=== PATIENT | female | born 1980 | race Caucasian/White ===

== ENCOUNTER 2016-09-14 11:02 | Emergency (ER) | payer OTHER ==
[~2016-09-14] VITALS: Ht 160 cm; Wt 52.3 kg
[2016-09-14 11:04] VITALS: BP 123/86; PULSE 88; RESP 20; O2SAT 100
--- NOTE | 2016-09-14 11:22 | ED.REPORT ---
HPI-Abd Pain F Under 39 Date of Service Sep 14, 2016 ED Provider: Gerson Padilla MD The patient is a 35 year old female who presents to the ED due to RLQ abdominal pain onset 2.5 hrs ago. She is pale, tearful and rates the pain as very severe, non-radiating and, "extremely uncomfortable." She c/o associated nausea and chills and denies chest pain, cough and SOB. She has a history of ovarian cysts but this pain is different. Pt is not . Nursing Notes Stated Complaint: ABDOMINAL PAIN Chief Complaint: Female Abdominal Pain Nursing Notes Reviewed: Yes Allergies: Coded Allergies: sulfamethoxazole (Verified Allergy, Mild, rash, 09/14/16) trimethoprim (Verified Allergy, Mild, rash, 09/14/16) General Time Seen by MD: 11:22 Chief Complaint Abdominal pain Hx Obtained From: Patient Arrived By: Walk-in Sudden in Onset?: Yes Onset Occurred: 1 - 4 hours ago Symptom Duration: Since onset Location: : RLQ Radiation: : Does not radiate Severity: Current: Severe Recent Healthcare: No recent doctor visit, No recent hospitalization Similar Sx Previous: No Past Medical History Past Medical History ovarian cysts Past Surgical History denies Smoking History Unknown if Ever Smoker Social History Other Social History: Local resident Ambulatory Status Independent Review of Systems Constitutional: Reports: Chills Respiratory: Denies: Non-productive cough, Shortness of breath Cardiovascular: Denies: Chest pain GI: Reports: Abdominal pain (RLQ), Nausea Complete sys rev & neg: except as marked. Physical Exam Initial Vital Signs Vital Signs (First) Date Time Temp Pulse Resp B/P Pulse Ox O2 Delivery O2 Flow Rate FiO2 09/14/16 11:04 36.4 88 20 123/86 100 Room Air Initial VS: Reviewed Head / Eyes: Atraumatic, Normocephalic, PERRL ENT: Mucous membranes moist, Conjunctiva normal, No scleral icterus Neck: Supple, Non-tender, Full range of motion Lymphatic: No lymphadenopathy Extremities: Vascular intact, Neuro intact, No swelling, No tenderness Skin: Warm, Dry, No cyanosis General/Constitutional: Awake Distress / Hydration: Positive: Distress mild Behavior: Positive: Tearful Appearance / Presentation: Positive: Pale laying with knees bent on gurney Able to move about in bed without too much trouble Respiratory / Chest: Atraumatic, Breath sounds NL, Breath sounds = bilat, No respiratory distress, No rales, No rhonchi, No wheezing Cardiovascular: Heart rate NL, Regular rhythm, Heart sounds NL, No gallop, No murmurs, No rubs Abdomen: Atraumatic, Soft, Non-tender, No guarding, No rebound, BS normoactive able to push on abdomen with no reproducable pain Back: Atraumatic, Inspection NL, Full range of motion, Painless range of motion , Non-tender Interpretation & Diagnostics Lab Results Interpretation Result Diagram: 09/14/16 1118 09/14/16 1118 Test 09/14/16 11:18 White Blood Count 6.9th/mm3 (3.8-10.1) Red Blood Count 4.68mil/mm3 (3.90-5.20) Hemoglobin 13.5g/dL (12.0-15.6) Hematocrit 40.8% (35.0-46.0) Mean Corpuscular Volume 87.2fL (81-100) Mean Corpuscular Hemoglobin 28.8pg (27.0-35.0) Mean Corpuscular Hemoglobin Concent 33.1% (32.0-37.0) Red Cell Distribution Width 12.5% (12.3-15.4) Platelet Count 221bil/L (150-400) Neutrophils (%) (Auto) 78.7% (40-74) Lymphocytes (%) (Auto) 14.6% (14-46) Monocytes (%) (Auto) 6.0% (4-12) Eosinophils (%) (Auto) 0.3% (0-5) Basophils (%) (Auto) 0.1% (0-3) Sodium Level 142mEq/L (134-144) Potassium Level 4.2mEq/L (3.5-5.2) Chloride Level 100mEq/L (97-108) Carbon Dioxide Level 25mmol/L (18-29) Blood Urea Nitrogen 11mg/dL (6-20) Creatinine 0.73mg/dL (0.57-1.00) Estimat Glomerular Filtration Rate 129mL/min (>59) Glucose Level 120mg/dL (60-99) Calcium Level 9.3mg/dL (8.5-10.1) Magnesium Level 1.9mg/dL (1.6-2.6) Total Bilirubin 0.8mg/dL (0.0-1.2) Aspartate Amino Transf (AST/SGOT) 16U/L (0-50) Alanine Aminotransferase (ALT/SGPT) 11U/L (0-32) Alkaline Phosphatase 55U/L (25-150) Total Protein 7.4g/dL (6.4-8.4) Albumin 4.5g/dL (3.4-5.0) Lipase 18U/L (13-60) US Renal/Urinary Tract 6 mm kidney stone in the bladder Exam Performed by: Radiologist Re-Eval/Medical Decision Re-Evaluation/Progress : Time of Eval: 13:22 Patient Status: Condition improved, Pain improved Re-Evaluation/Progress Note: Pt rechecked. Informed pt of diagnosis of 6mm kidney stone and plan for treatment. Pt understands and agrees with plan. F/U and RTER warnings given. All questions addressed. Counseled Regarding: Diagnosis, Lab results, Need for follow-up, When/why to return to ED Discharge & Departure Primary Impression: Ureterolithiasis Disposition: Home Discharge Condition All VS Reviewed: Yes Condition: Stable Patient Instructions: Renal Colic (ED) Additional Instructions: You have a 6mm kidney stone in your bladder. This is almost certainly the cause for the pain you were experiencing earlier. You will eventually pee out the stone and should not experience any further extreme pain. Do not drive your car or operate any machinery for a few hours until the pain medication wears off. Follow up with your primary care physician as needed. Return to the Emergency Department if you experience any new or worsening symptoms. We hope you feel better soon! You may require ibuprofen 800 mg every 8 hours. Referrals: OTHER,PHYSICIAN (PCP) Scribe Attestation Portion of this note were transcribed by Tamiko Church. I, Dr. Padilla, personally performed the history, physical exam, and medical decision-making: I reviewed and confirmed the accuracy for the information in the transcribed note. Signed by: ray Carreon, 09/14/16 0120 Gerson Padilla MD Sep 14, 2016 11:22 TAMIKO CHURCH Sep 14, 2016 11:36
[2016-09-14] MEDS ORDERED: Ondansetron 2 mg/mL 2 mL Inj IVPUSH PRN (11:25)
[2016-09-14] MEDS ORDERED: 0.9% Sodium Chloride 1,000 ML IV ONE (11:25)
[2016-09-14] MEDS ORDERED: Pantoprazole 4 mg/mL 10 mL Inj IVPUSH ONE (11:25)
[2016-09-14 11:30] LABS: BASOPHILS % (AUTO) 0.1 % (0-3); EOSINOPHILS % (AUTO) 0.3 % (0-5); Mean Corpuscular Hemoglobin 28.8 pg (27.0-35.0); Mean Corpuscular Volume 87.2 fL (81-100); NEUTROPHILS % (AUTO) 78.7 % (40-74); Platelet Count 221 bil/L (150-400)
[2016-09-14] MEDS: HYDROmorphone 1 mg/mL Inj IVPUSH PRN ×2 (11:45→12:31)
[2016-09-14 12:01] LABS: Magnesium 1.9 mg/dL (1.6-2.6)
[2016-09-14 13:46] VITALS: BP 128/80; PULSE 74; RESP 16; O2SAT 100
--- NOTE | 2016-09-14 13:54 | DRSVH ---
PROCEDURE: US RENAL SONOGRAM INDICATIONS: hydro? TECHNIQUE: Real-time scanning was performed of the kidneys and bladder, with image documentation. COMPARISON: CT, ABD/PELVIS W&WO CON ([facility]), 11/18/2010, 9:22. FINDINGS: Kidneys: Kidneys are normal in size. Right kidney measures 10.7 cm long; left kidney measures 11.4 cm long. Right renal cortical thickness is 1.2 cm; left renal cortical thickness is 1.4 cm. Renal c ortical echotexture is normal. No hydronephrosis. 8 mm nonobstructing right renal calcification.. No suspicious solid mass lesions. Bladder: Pre-void bladder volume is 84 mL. Post-void residual is 0 mL. Pre-void images demonstrate no intraluminal masses or stones. On pre-void images, neither ureteral jets are noted with color Do ppler interrogation. (Of note, ureteral jets may not be detectable in up to 25% of cases due to insu fficient differences in specific gravity between ureteral and bladder urine). 6 mm mobile urinary bl adder stone present. Miscellaneous: IMPRESSION: 1. 6 mm right renal and urinary bladder stones. No hydronephrosis. Dictated by: Eladio CHAKRABORTY Interpreted: Marbella Hammonds MD on 09/14/2016 at 13:50 Transcribed by: DOC on 09/14/2016 at 13:53 Approved by: Marbella Hammonds M.D. on 09/14/2016 at 15:23
== END 2016-09-14 14:01 | disposition home or self-care (01) ==
LOC: SED 11:02
DX: N20.1 Calculus of ureter (principal); Z88.1 Allergy status to other antibiotic agents; Z88.2 Allergy status to sulfonamides
CPT/HCPCS: 36415; 76770; 80053; 83690; 83735; 85025; 96361; 96374; 96375; 96376; 99285; J1170; J2405; J7030